=== PATIENT | male | born 2000 | race African-American/Black ===

== ENCOUNTER 2021-06-30 03:47 | Emergency (ER) | payer OTHER ==
[~2021-06-30] VITALS: Ht 175.3 cm; Wt 84.1 kg
--- NOTE | 2021-06-30 03:55 | PHYS DOC ---
General Adult HPI: HPI: ".. I was just coming in to go to bed..after celebrating my birthday ...I Have been drinking quite a bit tonight..."...." I twisted this RT ankle and heard a pop..and as you can see it is all swollen.and.. now it hurts to walk on it..." Patient is a 21 year old male who presents with above hx and complaint injury to right ankle. Patient has obvious edema and lateral malleolus. Some laxity. Foot squeeze is negative. Distal neurovascular is equal to the left foot. No upper leg tenderness. No other injury in the initial twist of right ankle. Patient normally healthy. Does have some anterior drawer laxity and increased pain with inversion. No other injury and fall Review of Systems: Review of Systems: Constitutional: Denies fever or chills Eyes: Denies change in visual acuity HENT: Denies nasal congestion or sore throat Respiratory: Denies cough or shortness of breath Cardiovascular: Denies chest pain or edema GI: Denies abdominal pain, nausea, vomiting, bloody stools or diarrhea : Denies dysuria Musculoskeletal: Complains of right ankle sprain Integument: Denies rash Neurologic: Denies headache, focal weakness or sensory changes Endocrine: Denies polyuria or polydipsia Lymphatic: Denies swollen glands Psychiatric: Denies depression or anxiety Family History: Family History: Noncontributory to presentation Current Medications: Current Meds: See nursing for home meds Allergies: Allergies: No known drug allergies Physical Exam: PE: Constitutional: Well developed, well nourished, no acute distress, non-toxic appearance. [] HENT: Normocephalic, atraumatic, bilateral external ears normal, oropharynx moist, no oral exudates, nose normal. [] Eyes: PERRLA, EOMI, conjunctiva normal, no discharge. [] Neck: Normal range of motion, no tenderness, supple, no stridor. [] Cardiovascular:Heart rate regular rhythm, no murmur [] Lungs & Thorax: Bilateral breath sounds clear to auscultation [] Abdomen: Bowel sounds normal, soft, no tenderness, no masses, no pulsatile masses. [] Skin: Warm, dry, no erythema, no rash. [] Back: No tenderness, no CVA tenderness. [] Extremities: No tenderness, no cyanosis, no clubbing, ROM intact, no edema. [] Findings in right ankle Neurologic: Alert and oriented X 3, normal motor function, normal sensory function, no focal deficits noted. [] Psychologic: Affect normal, judgement normal, mood normal. [] EKG: EKG: [] Radiology/Procedures: Radiology/Procedures: [][address] [address] IMAGING REPORT Signed PATIENT: KENNEY SALGUERO ACCOUNT: [id number] : 2000 LOCATION: ER AGE: 21 SEX: M EXAM STATUS: REG ER ORD. PHYSICIAN: ELSY BLACKWELL MD REASON: Twisted ankle PROCEDURE: ANKLE RIGHT 3V EXAM: Right ankle 3 views. HISTORY: Ankle pain after injury. COMPARISON: None. FINDINGS: Three views of the right ankle are obtained. There is soft tissue swelling laterally and anteriorly. No fractures are identified. Alignment is normal. Joint spaces are maintained. IMPRESSION: 1. Soft tissue swelling. No fracture. Electronically signed by: Boo Guzman MD (06/30/2021 5:45 AM) [id number] DICTATED AND SIGNED BY: DELMER GUZMAN MD DATE: 06/30/21 0542 CC: ELSY BLACKWELL MD; PCP,UNKNOWN ~MTH0 0 Heart Score: C/O Chest Pain: N/A Risk Factors: Risk Factors: DM, Current or recent (<one month) smoker, HTN, HLP, family history of CAD, obesity. Risk Scores: Score 0 - 3: 2.5% MACE over next 6 weeks - Discharge Home Score 4 - 6: 20.3% MACE over next 6 weeks - Admit for Clinical Observation Score 7 - 10: 72.7% MACE over next 6 weeks - Early Invasive Strategies Course & Med Decision Making: Course & Med Decision Making Pertinent Labs and Imaging studies reviewed. (See chart for details) Consider kyaw-ray in 2 weeks. Patient issued a copy of his x-ray here for follow-up at [facility] orthopedics. If unable to get into months and fo llow-up with [facility] Ortho at [phone]. Tylenol and ibuprofen for pain. Use crutches. Wear splint. Noted distal neurovascular intact after application of splint. Impression: 1. Right ankle sprain [] Roya Disclaimer: Roya Disclaimer: This electronic medical record was generated, in whole or in part, using a voice recognition dictation system. ELSY BLACKWELL MD Jun 30, 2021 03:55
[2021-06-30] MEDS ORDERED: HYDROcodone/APAP 7.5/325MG 1 TAB TABLET ONE (04:09)
[2021-06-30] MEDS ORDERED: HYDROcodon/IBUPROFEN 7.5/200MG 1 TAB TABLET PO ONE (04:15)
--- NOTE | 2021-06-30 05:47 | RAD ---
EXAM: Right ankle 3 views. HISTORY: Ankle pain after injury. COMPARISON: None. FINDINGS: Three views of the right ankle are obtained. There is soft tissue swelling laterally and anteriorly. No fractures are identified. Alignment is nor mal. Joint spaces are maintained. IMPRESSION: 1. Soft tissue swelling. No fracture. Electronically signed by: Boo Alcazar MD (06/30/2021 5:45 AM) [id number]
[2021-06-30 05:50] VITALS: BP 132/6
== END 2021-06-30 06:07 | disposition home or self-care (01) ==
LOC: ER 03:47
DX: S93.401A Sprain of unspecified ligament of right ankle, initial encounter (principal); X50.9XXA Other and unspecified overexertion or strenuous movements or postures, initial encounter; Y93.89 Activity, other specified; Y92.89 Other specified places as the place of occurrence of the external cause; Y99.8 Other external cause status
CPT/HCPCS: 73610; 99283